=== PATIENT | female | born 1945 | race Caucasian/White ===

== ENCOUNTER → 2017-07-19 08:27 | Outpatient (CLI) | payer BC | END | disposition home or self-care (01) | LOC: D.RAD 08:27 | DX: Z09 Encounter for follow-up examination after completed treatment for conditions other than malignant neoplasm (principal) ==

== ENCOUNTER → 2018-10-03 08:38 | Outpatient (CLI) | payer BC ==
--- NOTE | 2018-10-06 09:40 | ST ---
PATIENT:MARGARITA GUERRA MEDICAL RECORD: [id number] SEX: F LOCATION[facility] ORDER #: ADMISSION DATE: 10/03/18 AGE OF PATIENT: 72 REFERRING PHYSICIAN: INTERPRETING PHYSICIAN: REBECA COLES MD DATE OF SERVICE: 10/03/2018 PROCEDURE: Nuclear stress test. INDICATION: Syncope, abnormal ECG, bradycardia, hypertension. TECHNIQUE: She was exercised on a standard [place] protocol for 5 minutes and 20 seconds achieving greater than 85% max target heart rate response with 33 mCi of sestamibi injected at peak stress, 11 mCi were used previously for rest images. FINDINGS: Gated SPECT reveals preserved ejection fraction at 66% with good wall motion and thickening and brightening throughout all segments. SPECT imaging Cardiolite was used as myocardial fusion agent. There is homogeneous uptake throughout all segments at rest and stress with no evidence of inducible ischemia or previous infarction. OVERALL IMPRESSION: 1. This is a normal nuclear stress test with no evidence of inducible ischemia or previous infarction. 2. Gated SPECT reveals a preserved ejection fraction at 66%. In this patient with ongoing symptomatology, the current scan does not suggest the presence of hemodynamically significant coronary artery disease. Evaluate noncardiac etiology of chest pain. TRANSINT:[id number] Voice Confirmation ID: [id number] DOCUMENT ID: [id number] cc: REBECA Duke MD at 0940 CC: [id number] DICTATION DATE: 10/03/18 1655 PRESIDENT/GM PRODUCTION & LIVE EXPERIENCES: 10/04/18 0421 DEP CLI 10/03/18 [place] [id number]
--- NOTE | 2018-10-06 09:40 | EC ---
PATIENT:MARGARITA GUERRA DATE OF SERVICE: 10/03/18 SEX: F MEDICAL RECORD: [id number] DATE OF : 41 [facility] AGE OF PATIENT: 72 ADMISSION DATE: 10/03/18 REFERRING PHYSICIAN: INTERPRETING PHYSICIAN: REBECA ELLINGTON MD ECHOCARDIOGRAM REPORT ECHO CHARGES 4 ECHO COMPLETE Date: 10/03/18 CLINICAL DIAGNOSIS: SYNCOPE/BRADYCARDIA/ ABNORMAL EKG H/O HTN ECHOCARDIOGRAPHIC MEASUREMENTS (adult normal given) AC root (d.<3.7cm) 2.7 cm LV Septum d (<1.2 cm> 1.1 cm Valve Excursion 1.9 cm LV Septum (systole) 1.6 cm Left Atria (s.<4.0cm> 4.4 cm LVPW d(<1.2cm) 1.1 cm RV (d.<2.3cm) 2.7 cm LVPW (sytole) 1.8 cm LV diastole(<5.6CM) 6.1 cm MV E-F(>70mm/sec) cm LV systole 3.7 cm LVOT Diameter 1.8 cm MV exc.(>10mm) cm Est.ejection fraction (50-75%) % DOPPLER: LVIT cm/sec A 67.0 cm/sec E 113 cm/sec LA cm/sec RVSP 41.0 mmHg LVOT 109 cm/sec AOP1/2T m/s Asc. 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 Ellington TAPE# PACS Pericardial Effusion N DATE OF SERVICE: 10/03/2018 FINDINGS: 1. Left ventricular chamber size is mildly dilated. Left ventricular systolic function is normal. Overall ejection fraction is estimated at 55%. 2. Left atrium is mildly dilated at 4.4 cm. Right atrium and right ventricular chamber sizes are within normal limit. 3. Valvular structures have normal structure and motion. 4. Doppler interrogation reveals moderate mitral regurgitation and moderate ECHOCARDIOGRAM REPORT [id number] MARGARITA GUERRA tricuspid regurgitation. No other valvular insufficiency or stenosis. Pulmonary systolic pressure is estimated at 41 mmHg. 5. No evidence of pericardial effusion or left ventricular thrombus. TRANSINT:[id number] Voice Confirmation ID: [id number] DOCUMENT ID: [id number] REBECA ELLINGTON MD at 0940 CC: [id number] DICTATION DATE: 10/03/18 1643 BROOM HANDLE DIPPER: 10/03/18 1738 DEP CLI 10/03/18 [place] [id number] [place] [id number]
== END | disposition home or self-care (01) ==
LOC: D.HCCARDIO 08:38
PROVIDERS: ATTEND Internal Medicine Interventional Cardiology
DX: R55 Syncope and collapse (principal); I10 Essential (primary) hypertension